=== PATIENT | female | born 1990 | race Caucasian/White ===

== ENCOUNTER 2023-10-01 09:42 | Emergency (ER) | payer BC, SELFPAY ==
[2023-10-01 09:58] VITALS: BP 104/73
[2023-10-01 10:22] VITALS: BMI 22.8
[2023-10-01 10:25] LABS: Urine Albumin Negative (Neg - Trace); Urine Bilirubin Negative (Negative); Urine Character Clear (Clear); Urine Color Yellow; Urine Glucose Negative (Negative); Urine Ketone Negative (Negative); Urine Leukocyte Negative (Negative); Urine Nitrite Negative (Negative); Urine Occult Blood Negative (Negative); Urine Urobilinogen Negative (Neg - 1+)
[2023-10-01] MEDS: OMNIPAQUE 50 ML PO (10:27)
[2023-10-01 10:34] LABS: % Basophils 0.4 % (0-2); % Eosinophils 0.9 % (0-6); % Immature Granulocytes 0.1 % (0-0.5); % Lymphocytes 31.4 % (20.5-51.1); % Monocytes 7.3 % (1.7-9.3); % Neutrophils 59.9 % (42.2-75.2); Absolute Eosinophils 0.1 10^3/uL (0-0.7); Absolute Lymphocytes 2.9 10^3/uL (1.2-3.4); Absolute Monocytes 0.7 10^3/uL (0.1-0.6); Absolute Neutrophils 5.5 10^3/uL (1.4-6.5); Hematocrit 42.7 % (37.0-47.0); Hemoglobin 14.1 g/dL (12.0-16.0); Mean Corpuscular Hgb 27.4 pg (27.0-31.0); Mean Corpuscular Volume 82.9 fL (81.0-99.0); Mean Platelet Volume 10.6 fL (7.4-10.4); Nucleated Red Blood Cells % 0 %; Platelet Count 275 10^3/uL (130-400); Red Blood Cell Count 5.15 10^6/uL (4.20-5.40); Red Cell Dist. Width 12.7 % (11.5-14.5); White Blood Cell Count 9.2 10^3/uL (4.8-10.8)
[2023-10-01 10:45] LABS: HCG, Serum Qualitative Screen Negative
[2023-10-01 10:48] LABS: ALT (SGPT) 18 U/L (0-35); AST (SGOT) 25 U/L (14-36); Albumin 4.8 g/dl (3.5-5.0); Alkaline Phosphatase 69 U/L (38-126); Blood Urea Nitrogen 23 mg/dl (7-17); Calcium 9.5 mg/dl (8.4-10.2); Carbon Dioxide 24 mmol/L (22-30); Chloride 105 mmol/L (98-107); Estimated Creatinine Clearance 92 ml/min; Glucose 95 mg/dl (70-99); Lipase 133 U/L (23-300); Potassium 4.4 mmol/L (3.5-5.1); Sodium 136 mmol/L (135-145); Total Bilirubin 0.4 mg/dl (0.2-1.3); eGFR > 60.00
--- NOTE | 2023-10-01 10:50 | ED.GENMED ---
History of Present Illness
General
Chief Complaint: Abdominal Pain
Source: patient and spouse
Exam Limitations: none
Time Seen by Provider: 10/01/23 10:09
Nursing documentation reviewed up to this point in time: agreed with
Travel History
Have you had any contact with someone who has COVID-19?: No
Do you have any symptoms of coronavirus? Fever > 100 degrees, chills, cough, shortness of breath, sore throat, loss of taste or smell, muscle aches, or headache?: No
History of Present Illness
History of Present Illness:
32-year-old female presenting to the emergency department today with concerns of periumbilical abdominal pain starting roughly 6 hours prior to arrival slowly progressing since with associated nausea no diarrhea no vomiting no vaginal symptoms had a
previous but no additional abdominal surgeries. Does have an appendix.
Past History
Past History
ED Past Medical History: None
ED Past Surgical History: None
Social History
Tobacco: Non-smoker
Personal:
Living: with family
Review of Systems
Review of Systems
Allergies reviewed?: Yes
All Other Systems: ROS reviewed and negative except as documented in HPI and ROS
Phy Exam
Physical Exam
Physical Exam:
GENERAL: Alert , in no apparent distress
EYE: pupils equal and reactive
NECK: Supple, no significant adenopathy.
ENT: o/p clr, mmm.
CARDIAC: Regular rate and rhythm .
LUNGS: Clear breath sounds bilaterally, no acute respiratory distress, no wheezes/rales/rhonchi
ABDOMEN: Tenderness about the lower abdomen maximal to the periumbilical region but additionally does have tenderness at McBurney's point. Upper abdomen soft and benign.
NEUROLOGICAL: Alert and oriented, no focal neuro deficits
SKIN: Warm and dry, skin intact.
MUSCULOSKELETAL: No edema, well perfused.
PSYCH: Normal and appropriate interaction.
Course
Orders/Labs/Results
Orders:
Orders
10/01/23 10:01
Test Result ONCE
10/01/23 10:08
Complete Blood Count/With Diff Urgent
Urinalysis Reflex To Culture Urgent
Date Specimen was Collected: 10/01/23
Time Specimen was Collected: 10:01
10/01/23 10:13
Comprehensive Metabolic Panel Urgent
HCG, Serum Qualitative Screen Urgent
Lipase Urgent
10/01/23 10:23
CT Abd/pel W Iv And Oral Contr Urgent
Comment:
Reason For Exam: rlq pain
Iohexol [Omnipaque] See Protocol PO NOW STA
10/01/23 10:24
Iohexol [Omnipaque] 50 ml .ROUTE .STK-MED ONE
Abnormal Lab Results
10/01/23 10/01/23
10:08 10:13
MPV 10.6 H fL
(7.4-10.4)
Absolute Monos (auto) 0.7 H 10^3/uL
(0.1-0.6)
BUN 23 H mg/dl
(7-17)
10/01/23 10:08
10/01/23 10:13
Vital Signs
Initial and Last Documented VS:
Initial Vital Signs
Temp Pulse Resp BP Pulse Ox
98.1 F 86 16 104/73 98
10/01/23 09:58 10/01/23 09:58 10/01/23 09:58 10/01/23 09:58 10/01/23 09:58
Last Documented Vital Signs
Temp Pulse Resp BP Pulse Ox
98.1 F 86 16 104/73 98
10/01/23 09:58 10/01/23 09:58 10/01/23 09:58 10/01/23 09:58 10/01/23 09:58
MDM/Problems Addressed
MDM/Problems Addressed:
32-year-old female presenting to the emergency department with concerns of periumbilical and lower abdominal discomfort starting over the past few hours. Ongoing since described as ache nausea without vomiting. No diarrhea no changes in urination
no urinary or pelvic symptoms. Does not tenderness to lower abdomen mainly around the periumbilical region. Plan for CT scan for further assessment. CT scan without acute findings. Labs unremarkable. Patient reassessed and generally comfortable
in no distress. Stable for outpatient management advised for close outpatient follow-up. Return precautions given.
*Critical Care Note
Total Time (30-74mins, 75-104mins- exclusive of procedures): Not Applicable
ED Attending Note
-
Portions of this chart may have been created with voice recognition software.� Occasional wrong word or��sound alike� substitutions may have occurred due to the inherent limitations of voice recognition software.
Discharge Plan
Departure
Patient Disposition: Home (Routine Discharge)
Date of Disposition: 10/01/23
Time of Disposition: 13:57
Patient with high blood pressure during this ER visit?: No
Condition: Good
Covid-19: Not Applicable
Discharge Problem:
Abdominal pain
Instructions: Abdominal Pain
Prescriptions:
No Action
doxylamine-pyridoxine (vit B6) [Diclegis] 1 EACH tablet,delayed release (DR/EC)
1 ea PO BIDPRN PRN (Reason: nausea) Qty: 14 1RF
Referrals:
Lurdes Willis DO [Family Provider] -
Activity Restrictions/Additional Instructions:
You came to the emergency department today with concerns of abdominal discomfort. Here you had a reassuring evaluation with normal labs and a normal CT scan. Please help closely with your primary care doctor. Return to the emergency department
for any worsening, new or concerning symptoms.
Interventions
Interventions:
*Risk Screen - Suicide Last Done: 10/01/23 09:58
*General Assessment Last Done: 10/01/23 09:58
*Neglect/Abuse Screening Last Done: 10/01/23 09:58
[facility] Assessment Last Done: 10/01/23 11:02
[2023-10-01 13:59] VITALS: BP 106/70
[2023-10-01 14:00] VITALS: BP 108/62
== END 2023-10-01 14:16 | disposition home or self-care (01) ==
LOC: EMR 09:42
PROVIDERS: EMERGENCY PHYSICIAN Emergency Medicine; FAMILY PHYSICIAN Family Medicine
DX: R10.33 Periumbilical pain (principal); R11.0 Nausea; R10.31 Right lower quadrant pain; K21.9 Gastro-esophageal reflux disease without esophagitis; F41.9 Anxiety disorder, unspecified
CPT/HCPCS: 99285; 74177; 80053; 81003; 83690; 84703; 85025; Q9967

== ENCOUNTER → 2024-03-23 09:06 | Outpatient (REF) | payer BC, SELFPAY | LOC: RAD 09:06 | PROVIDERS: ATTENDING PHYSICIAN Otolaryngology; FAMILY PHYSICIAN Family Medicine Addiction Medicine | DX: R07.0 Pain in throat (principal); R49.0 Dysphonia | CPT/HCPCS: 74221 ==

== ENCOUNTER → 2025-06-09 16:11 | Outpatient (REF) | payer BC, SELFPAY | LOC: PNTC 16:11 | PROVIDERS: ATTENDING PHYSICIAN Student in an Organized Health Care Education/Training Program | DX: Z98.891 History of uterine scar from previous surgery (principal); O99.320 Drug use complicating pregnancy, unspecified trimester | CPT/HCPCS: 76811; 76817 ==

== ENCOUNTER → 2025-07-14 08:25 | Outpatient (REF) | payer BC, SELFPAY | LOC: PNTC 08:25 | PROVIDERS: ATTENDING PHYSICIAN Obstetrics & Gynecology | DX: Z36.2 Encounter for other antenatal screening follow-up (principal); O35.5XX0 Maternal care for (suspected) damage to fetus by drugs, not applicable or unspecified; O34.211 Maternal care for low transverse scar from previous cesarean delivery | CPT/HCPCS: 76816 ==

== ENCOUNTER → 2025-08-02 08:37 | Outpatient (REF) | payer BC, SELFPAY ==
--- NOTE | 2025-08-02 07:43 | PN.DIAED06 ---
Meal Plan - Gestational
- Breakfast
Gestational Diabetes Meal Plan Name: 1800 calories
Breakfast - Total Carbohydrate (grams): 30 (carbs = starch, fruit, milk)
Breakfast - Starch Carbohydrate: 1 (1 carb serving = 15 g)
Breakfast - Fruit Carbohydrate: 0 (no fruit or juice before noon)
Breakfast - Milk Carbohydrate: 1
Breakfast - Nonstarchy Vegetables: Yes
Breakfast - Meat/Protein: 1 (1 protein = 1 oz/7 g)
Breakfast - Fat: 2 (1 fat = 5g)
- Morning Snack
Morning Snack - Total Carbohydrate (grams): 30
Morning Snack - Starch Carbohydrate: 1
Morning Snack - Fruit Carbohydrate: 0 (no fruit or juice before noon)
Morning Snack - Milk Carbohydrate: 1
Morning Snack - Nonstarchy Vegetables: Yes
Morning Snack - Meat/Protein: 0.5
Morning Snack - Fat: 0
- Lunch
Lunch - Total Carbohydrate (grams): 45
Lunch - Starch Carbohydrate: 2
Lunch - Fruit Carbohydrate: 1
Lunch - Milk Carbohydrate: 0
Lunch - Nonstarchy Vegetables: Yes
Lunch - Meat/Protein: 2
Lunch - Fat: 1
- Afternoon Snack
Afternoon Snack - Total Carbohydrate (grams): 30
Afternoon Snack - Starch Carbohydrate: 1
Afternoon Snack - Fruit Carbohydrate: 1
Afternoon Snack - Milk Carbohydrate: 0
Afternoon Snack - Nonstarchy Vegetables: Yes
Afternoon Snack - Meat/Protein: 1
Afternoon Snack - Fat: 0
- Dinner
Dinner - Total Carbohydrate (grams): 45
Dinner - Starch Carbohydrate: 2
Dinner - Fruit Carbohydrate: 0
Dinner - Milk Carbohydrate: 1
Dinner - Nonstarchy Vegetables: Yes
Dinner - Meat/Protein: 2
Dinner - Fat: 2
- Evening Snack
Evening Snack - Total Carbohydrate (grams): 30
Evening Snack - Starch Carbohydrate: 1
Evening Snack - Fruit Carbohydrate: 0
Evening Snack - Milk Carbohydrate: 1
Evening Snack - Nonstarchy Vegetables: Yes
Evening Snack - Meat/Protein: 1
Evening Snack - Fat: 1
--- NOTE | 2025-08-02 11:01 | PN.DE ---
Addendum entered by Mariella Hogan RN 08/02/25 11:47:
08/02/2025 addendum. Shirley states that per her insurance she can receive a continuous glucometer if she enrolls in a diabetes education program through [employer] I asked her to reach out to confirm they will provide a CGM vs. their own brand of
glucometer and test strips; reach out to me with any questions on applying a CGM (if they provide to her).
Original Note:
Diabetes Education
- -
08/02/2025
Met with Shirley and her today for medical nutrition therapy. She is with an SHREYAS of 10/21/2025.
Explained glucose metabolism in body and what occurs during to cause increase blood sugar. Discussed importance of keeping BS well controlled to avoid complications to the baby during and after (macrosomia, hypoglycemia). Explained
to Quiana that she is at increased risk of developing T2DM in the future. She states she gained 30 lbs in her first trimester, thinks this attributed to GSD. Also states she recently lost 5 lbs from eating a low carbohydrate diet, found herself
still hungry.
Discussed macronutrients, provided with 1800 maxx GDM meal plan. Educated on importance of eating 3 meals and 3 snacks, spread out throughout the day, and not to skip any meals or snacks; eat the proper portion of carbohydrates, lean proteins, and
healthy fats and unlimited non-starchy vegetables. Discussed physical activity recommendations of 30 minutes per day, she has not been exercising. Encouraged walking, especially after meals to help lower post prandial glucose.
She brought in Accu-Chek glucometer and lancets that were previously ordered. Her pharmacy is out of test strips, they called while in office and will have test strips delivered today from the [facility]. They are leaving for a vacation in [place]
tomorrow, will be away for 7 days. I provided sample Contour Next glucometer with lancing device. Educated and demonstration on proper blood sugar testing technique, testing sites and testing pattern. She is aware to test FBS and 2 hr pp each
meal. Expected results for FBS <95 mg/dL and 2 hr pp <120 mg/dL. Noted for non fasting blood sugar of 76 mg/dl this morning. Log sheet provided for her to record results, she will send a 4-day meal log with all her FBG and 2hr Post prandial glucose
numbers to this office for review. In addition, she will send all her glucose readings to [facility] every Saturday.
She verbalized understanding, and was encouraged to reach out should she require insulin.
== END ==
LOC: DES 08:37
PROVIDERS: ATTENDING PHYSICIAN Obstetrics & Gynecology
DX: O24.419 Gestational diabetes mellitus in pregnancy, unspecified control (principal)
CPT/HCPCS: 99078

== ENCOUNTER → 2025-08-11 09:27 | Outpatient (REF) | payer BC, SELFPAY | LOC: PNTC 09:27 | PROVIDERS: ATTENDING PHYSICIAN Obstetrics & Gynecology | DX: O34.219 Maternal care for unspecified type scar from previous cesarean delivery (principal); O99.323 Drug use complicating pregnancy, third trimester; O24.410 Gestational diabetes mellitus in pregnancy, diet controlled | CPT/HCPCS: 76816 ==

== ENCOUNTER → 2025-08-31 16:22 | Outpatient (REF) | payer BC, SELFPAY | LOC: PNTC 16:22 | PROVIDERS: ATTENDING PHYSICIAN Obstetrics & Gynecology | DX: O9A.213 Injury, poisoning and certain other consequences of external causes complicating pregnancy, third trimester (principal) | CPT/HCPCS: 59025; 76815 ==